=== PATIENT | male | born 1975 | race Caucasian/White ===

== ENCOUNTER 2016-05-20 03:39 | Observation (INO) | payer OTHER ==
[2016-05-20] MEDS ORDERED: SODIUM CHLORIDE 0.9% 500 ML IV STA (04:07)
[2016-05-20] MEDS ORDERED: SODIUM CHLORIDE 0.9% 1,000 ML IV STA ×2 (04:07)
--- NOTE | 2016-05-20 04:12 | ED ---
General Adult HPI - General Chief complaint: Recheck/Abnormal Lab/Rx Stated complaint: feels off, dizzy, nausea Time Seen by Provider: 05/20/16 04:01 Source: patient, RN notes reviewed, old records reviewed Mode of arrival: ambulatory Limitations: no limitations - History of Present Illness Initial comments: This is a 41-year-old male to the ER for evaluation. Patient presents today for evaluation of not feeling well. Patient's nonspecific symptoms. Patient states he has no medical history no travel history no significant sick contacts and no recent drugs or alcohol abuse. Patient states after woke up from a nap earlier today with his granddaughter he just was not feeling well maybe a little left arm numbness, no change in weakness or strength. No change in sensation. Patient was try to sleep today. He says he just feels out of it, patient states he does not feel right. He is able to walk without difficulty, patient is alert and oriented but states that something is wrong, patient's is here with concerned, states patient does not normally act like this - Related Data Home Medications Medication Instructions Recorded Confirmed No Known Home Medications [No 05/20/16 05/20/16 Known Home Medications] Allergies Allergy/AdvReac Type Severity Reaction Status Date / Time No Known Allergies Allergy Verified 05/20/16 03:49 Review of Systems ROS Statement: Those systems with pertinent positive or pertinent negative responses have been documented in the HPI. ROS Other: All systems not noted in ROS Statement are negative. Past Medical History Past Medical History: No Reported History History of Any Multi-Drug Resistant Organisms: None Reported Past Surgical History: No Surgical Hx Reported Past Psychological History: Depression Smoking Status: Never smoker Past Alcohol Use History: None Reported Past Drug Use History: None Reported General Exam Limitations: no limitations General appearance: alert, in no apparent distress Head exam: Present: atraumatic, normocephalic, normal inspection Eye exam: Present: normal appearance, PERRL, EOMI. Absent: scleral icterus, conjunctival injection, periorbital swelling ENT exam: Present: normal exam, mucous membranes moist Neck exam: Present: normal inspection. Absent: tenderness, meningismus, lymphadenopathy Respiratory exam: Present: normal lung sounds bilaterally. Absent: respiratory distress, wheezes, rales, rhonchi, stridor Cardiovascular Exam: Present: regular rate, normal rhythm, normal heart sounds. Absent: systolic murmur, diastolic murmur, rubs, gallop, clicks GI/Abdominal exam: Present: soft, normal bowel sounds. Absent: distended, tenderness, guarding, rebound, rigid Extremities exam: Present: normal inspection, full ROM, normal capillary refill. Absent: tenderness, pedal edema, joint swelling, calf tenderness Back exam: Present: normal inspection Neurological exam: Present: alert, oriented X3, CN II-XII intact Psychiatric exam: Present: normal affect, normal mood Skin exam: Present: warm, dry, intact, normal color. Absent: rash Course Vital Signs 05/20/16 03:46 Temperature 97.8 F Pulse Rate 65 Respiratory 18 Rate Blood Pressure 140/84 O2 Sat by Pulse 99 Oximetry - Reevaluation(s) Reevaluation #1: 05/20/16 06:01 Patient states he is feeling better with IV hydration although still feels a little weird, left-sided symptoms. Family concerned about heart attack EKG Findings - EKG Comments: EKG Findings:: EKG shows normal sinus rhythm rate of 62, W[place] 140, QRS 96, QTC 43 Medical Decision Making - Medical Decision Making 41 mailed the ER for evaluation of left-sided symptoms, concern for heart attack. Patient's feel weak and dizzy throughout the day. Patient's peak headache enzymes are mildly elevated, EKG and troponin are negative. Patient will be admitted for serial troponins, cardiac observation - Lab Data Result diagrams: 05/20/16 04:30 05/20/16 04:30 Lab Results 05/20/16 05/20/16 05/20/16 Range/Units 04:30 04:30 04:30 WBC 7.5 (3.8-10.6) k/uL RBC 5.41 (4.30-5.90) m/uL Hgb 15.4 (13.0-17.5) gm/dL Hct 46.7 (39.0-53.0) % MCV 86.2 (80.0-100.0) fL MCH 28.4 (25.0-35.0) pg MCHC 33.0 (31.0-37.0) g/dL RDW 13.4 (11.5-15.5) % Plt Count 207 (150-450) k/uL Neutrophils % 60 % Lymphocytes % 32 % Monocytes % 4 % Eosinophils % 2 % Basophils % 1 % Neutrophils # 4.5 (1.3-7.7) k/uL Lymphocytes # 2.4 (1.0-4.8) k/uL Monocytes # 0.3 (0-1.0) k/uL Eosinophils # 0.2 (0-0.7) k/uL Basophils # 0.1 (0-0.2) k/uL PT (9.0-12.0) sec INR (<1.1) APTT (22.0-30.0) sec Sodium 142 (137-145) mmol/L Potassium 4.1 (3.5-5.1) mmol/L Chloride 107 (98-107) mmol/L Carbon Dioxide 22 (22-30) mmol/L Anion Gap 13 mmol/L BUN 15 (9-20) mg/dL Creatinine 0.90 (0.66-1.25) mg/dL Est GFR (MDRD) Af Amer >60 (>60 ml/min/1.73 sqM) Est GFR (MDRD) Non-Af >60 (>60 ml/min/1.73 sqM) Glucose 117 H (74-99) mg/dL Calcium 9.5 (8.4-10.2) mg/dL Total Bilirubin 0.7 (0.2-1.3) mg/dL AST 38 (17-59) U/L ALT 66 (21-72) U/L Alkaline Phosphatase 86 (38-126) U/L Total Creatine Kinase 322 H (55-170) U/L CK-MB (CK-2) 2.7 H* (0.0-2.4) ng/mL CK-MB (CK-2) Rel Index 0.8 Troponin I <0.012 (0.000-0.034) ng/mL Total Protein 7.8 (6.3-8.2) g/dL Albumin 4.3 (3.5-5.0) g/dL TSH 2.210 (0.465-4.680) mIU/L Urine Color Urine Appearance (Clear) Urine pH (5.0-8.0) Ur Specific [place] (1.001-1.035) Urine Protein (Negative) Urine Glucose (UA) (Negative) Urine Ketones (Negative) Urine Blood (Negative) Urine Nitrate (Negative) Urine Bilirubin (Negative) Urine Urobilinogen (<2.0) mg/dL Ur Leukocyte Esterase (Negative) Salicylates <1.0 mg/dL Acetaminophen <10.0 ug/mL Serum Alcohol <10 mg/dL 05/20/16 05/20/16 Range/Units 04:30 05:42 WBC (3.8-10.6) k/uL RBC (4.30-5.90) m/uL Hgb (13.0-17.5) gm/dL Hct (39.0-53.0) % MCV (80.0-100.0) fL MCH (25.0-35.0) pg MCHC (31.0-37.0) g/dL RDW (11.5-15.5) % Plt Count (150-450) k/uL Neutrophils % % Lymphocytes % % Monocytes % % Eosinophils % % Basophils % % Neutrophils # (1.3-7.7) k/uL Lymphocytes # (1.0-4.8) k/uL Monocytes # (0-1.0) k/uL Eosinophils # (0-0.7) k/uL Basophils # (0-0.2) k/uL PT 10.7 (9.0-12.0) sec INR 1.1 (<1.1) APTT 25.1 (22.0-30.0) sec Sodium (137-145) mmol/L Potassium (3.5-5.1) mmol/L Chloride (98-107) mmol/L Carbon Dioxide (22-30) mmol/L Anion Gap mmol/L BUN (9-20) mg/dL Creatinine (0.66-1.25) mg/dL Est GFR (MDRD) Af Amer (>60 ml/min/1.73 sqM) Est GFR (MDRD) Non-Af (>60 ml/min/1.73 sqM) Glucose (74-99) mg/dL Calcium (8.4-10.2) mg/dL Total Bilirubin (0.2-1.3) mg/dL AST (17-59) U/L ALT (21-72) U/L Alkaline Phosphatase (38-126) U/L Total Creatine Kinase (55-170) U/L CK-MB (CK-2) (0.0-2.4) ng/mL CK-MB (CK-2) Rel Index Troponin I (0.000-0.034) ng/mL Total Protein (6.3-8.2) g/dL Albumin (3.5-5.0) g/dL TSH (0.465-4.680) mIU/L Urine Color Colorless Urine Appearance Clear (Clear) Urine pH 5.5 (5.0-8.0) Ur Specific [place] 1.004 (1.001-1.035) Urine Protein Negative (Negative) Urine Glucose (UA) Negative (Negative) Urine Ketones Negative (Negative) Urine Blood Negative (Negative) Urine Nitrate Negative (Negative) Urine Bilirubin Negative (Negative) Urine Urobilinogen <2.0 (<2.0) mg/dL Ur Leukocyte Esterase Negative (Negative) Salicylates mg/dL Acetaminophen ug/mL Serum Alcohol mg/dL - Radiology Data Radiology results: report reviewed (Chest x-ray two-view is negative for acute disease), image reviewed Critical Care Time Critical Care Time: Yes Total Critical Care Time: 31 Disposition Clinical Impression: Chest pain, Arm paresthesia, left Disposition: ADMITTED IP TO THIS [facility] Condition: Undetermined Referrals: Keith Macdonald MD [Primary Care Provider] - 1-2 days
[2016-05-20 04:49] LABS: Basophils # (A) 0.1 k/uL (0-0.2); Basophils % (A) 1 %; CH 29.8; CHCM 34.7; Eosinophils # (A) 0.2 k/uL (0-0.7); Eosinophils % (A) 2 %; HCT 46.7 % (39.0-53.0); HDW 2.71; HGB 15.4 gm/dL (13.0-17.5); Luc # (Auto) 0.09; Luc % (Auto) 1; Lymphocytes # (A) 2.4 k/uL (1.0-4.8); Lymphocytes % (A) 32 %; MCH 28.4 pg (25.0-35.0); MCV 86.2 fL (80.0-100.0); Mean Platelet Volume 7.6; Monocytes # (A) 0.3 k/uL (0-1.0); Monocytes % (A) 4 %; Neutrophils # (A) 4.5 k/uL (1.3-7.7); Neutrophils % (A) 60 %; RBC 5.41 m/uL (4.30-5.90); RDW 13.4 % (11.5-15.5); WBC 7.5 k/uL (3.8-10.6); WBC (Perox) 7.29
[2016-05-20 05:02] LABS: INR 1.1 (<1.1); Partial Thromboplastin Time 25.1 sec (22.0-30.0); Prothrombin Time 10.7 sec (9.0-12.0)
[2016-05-20 05:06] LABS: ALT 66 U/L (21-72); AST 38 U/L (17-59); Acetaminophen <10.0 ug/mL; Alcohol <10 mg/dL; Alkaline Phosphatase 86 U/L (38-126); Anion Gap 13 mmol/L; Blood Urea Nitrogen 15 mg/dL (9-20); Calcium 9.5 mg/dL (8.4-10.2); Carbon Dioxide 22 mmol/L (22-30); Chloride 107 mmol/L (98-107); Glucose 117 mg/dL (74-99); Non-African American GFR(MDRD) >60 (>60 ml/min/1.73 sqM); Potassium 4.1 mmol/L (3.5-5.1); Salicylate <1.0 mg/dL; Sodium 142 mmol/L (137-145); Total Bilirubin 0.7 mg/dL (0.2-1.3); Total Protein 7.8 g/dL (6.3-8.2)
[2016-05-20 05:09] LABS: Creatine Kinase 322 U/L (55-170)
--- NOTE | 2016-05-20 05:17 | CT ---
EXAMINATION TYPE: CT brain wo con DATE OF EXAM: 05/20/2016 5:02 AM COMPARISON: NONE HISTORY: dizziness CT DLP: 1017.90 mGycm Automated exposure control for dose reduction was used. FINDINGS: There is no acute intracranial hemorrhage, mass effect, or midline shift identified. The ventricles and sulci are within normal limits in size. The globes are intact and the visualized sinuses are edmund ar. IMPRESSION: No acute intracranial hemorrhage, mass effect, or midline shift is seen.
[2016-05-20 05:22] LABS: Troponin I <0.012 ng/mL (0.000-0.034)
--- NOTE | 2016-05-20 05:23 | XR ---
EXAMINATION TYPE: XR chest 2V DATE OF EXAM: 05/20/2016 5:03 AM COMPARISON: None. HISTORY: History of weakness and no history of heart and lung bases. TECHNIQUE: Frontal and lateral views of the chest are obtained. FINDINGS: There is no focal air space opacity, pleural effusion, or pneumothorax seen. The cardiac silhouette size is within normal limits. The osseous structures are intact. IMPRESSION: No acute cardiopulmonary process.
[2016-05-20 05:41] LABS: Creatine Kinase MB 2.7 ng/mL (0.0-2.4)
[2016-05-20 05:54] LABS: Appearance,Urine Clear (Clear); Bilirubin,Urine Negative (Negative); Glucose,Urine (UA) Negative (Negative); Ketones,Urine Negative (Negative); Leukocyte Esterase,Urine Negative (Negative); Nitrite,Urine Negative (Negative); PH, Urine 5.5 (5.0-8.0); Protein,Urine Negative (Negative); Specific Gravity,Urine 1.004 (1.001-1.035); UA Billing (MACRO vs. MICRO) CHEM; Urobilinogen,Urine <2.0 mg/dL (<2.0)
[2016-05-20] MEDS ORDERED: ASPIRIN 81 MG CHEW PO STA (06:00)
[2016-05-20] MEDS ORDERED: NITROGLYCERIN SL TABS 0.4 MG TAB SUBLINGUAL PRN (06:00)
[2016-05-20] MEDS ORDERED: SODIUM CHLORIDE 0.9% 1,000 ML IV SCH (06:00)
[2016-05-20] MEDS ORDERED: HEPARIN SODIUM,PORCINE/D5W PMX 25,000 UNIT in DEXTROSE/WATER 1 500ML.BAG IV SCH (06:00)
[2016-05-20] MEDS ORDERED: HEPARIN SODIUM,PORCINE 5,000 UNIT/ML 1 ML VIAL IV PRN (06:00)
[2016-05-20] MEDS ORDERED: HEPARIN SODIUM,PORCINE 5,000 UNIT/ML 1 ML VIAL IV ONE (06:00)
[2016-05-20] MEDS ORDERED: ATORVASTATIN 80 MG TAB PO SCH (09:00)
[2016-05-20 09:49] VITALS: RESP 18
--- NOTE | 2016-05-20 11:01 | ECHOF ---
Referral Reason:cp MEASUREMENTS -------- HEIGHT: 152.4 cm WEIGHT: 90.7 kg BP: 124/72 RVIDd: 3.4 cm (< 3.3) IVSd: 1.2 cm (0.6 - 1.1) LVIDd: 4.7 cm (3.9 - 5.3) LVPWd: 1.0 cm (0.6 - 1.1) IVSs: 1.4 cm LVIDs: 3.2 cm LVPWs: 1.5 cm LA Diam: 3.8 cm (2.7 - 3.8) Ao Diam: 3.1 cm (2.0 - 3.7) AV Cusp: 2.1 cm (1.5 - 2.6) LA Diam: 3.9 cm (2.7 - 3.8) MV EXCURSION: 21.150 mm (> 18.000) MV EF SLOPE: 130 mm/s (70 - 150) EPSS: 0.5 cm MV E [place]: 0.73 m/s MV DecT: 193 ms MV A [place]: 0.62 m/s MV E/A Ratio: 1.16 RAP: 5.00 mmHg RVSP: 18.11 mmHg FINDINGS -------- Sinus rhythm. This was a technically good study. LV size, wall thickness and systolic function are normal, with an EF greater than 55%. The right ventricle is normal in size. The left atrial size is normal. The right atrial size is normal. There is mild aortic valve sclerosis. There is no evidence of aortic regurgitation. Mild mitral annular calcification present. Mild mitral regurgitation is present. Mild tricuspid regurgitation present. There is no evidence of pulmonary hypertension. The right ventricular systolic pressure, as measured by Doppler, is 18.11mmHg. There is no pulmonic regurgitation present. The aortic root size is normal. There is no pericardial effusion. CONCLUSIONS -------- 1. LV size, wall thickness and systolic function are normal, with an EF greater than 55%. 2. There is no pericardial effusion. 3. There is mild aortic valve sclerosis. 4. Mild mitral annular calcification present. 5. Mild mitral regurgitation is present. 6. Mild tricuspid regurgitation present. 7. There is no evidence of pulmonary hypertension. 8. The right ventricular systolic pressure, as measured by Doppler, is 18.11mmHg. 9. There is no pulmonic regurgitation present. 10. The aortic root size is normal. REGIONAL PRODUCTION MANAGER: Jeannine Wagner RDCS
[2016-05-20 11:26] LABS: Creatine Kinase 280 U/L (55-170)
[2016-05-20 11:38] LABS: Creatine Kinase MB 1.8 ng/mL (0.0-2.4); Troponin I <0.012 ng/mL (0.000-0.034)
--- NOTE | 2016-05-20 12:34 | P.HPIM ---
History of Present Illness 41-year-old male was admitted through the emergency room with complaints of left arm tingling with nausea patient denies any history of coronary disease negative family history troponins noted to be negative .negative medical history Review of Systems Gastrointestinal: Reports nausea Neurological: Reports paresthesias Past Medical History Past Medical History: No Reported History History of Any Multi-Drug Resistant Organisms: None Reported Past Surgical History: No Surgical Hx Reported Additional Past Anesthesia/Blood Transfusion Reaction / Comment(s): Pt has never had anesthesia Past Psychological History: Depression Additional Psychological History / Comment(s): Pt has had depression in the past but none for a long time. He resides with his spouse and their 3 children. He is independent. Smoking Status: Never smoker Past Alcohol Use History: None Reported Past Drug Use History: None Reported - Past Family History Father History Unknown: Yes Additional Family Medical History / Comment(s): Pt is adopted. Mother Family Medical History: No Reported History Additional Family Medical History / Comment(s): Pt is adopted. Medications and Allergies Home Medications Medication Instructions Recorded Confirmed Type No Known Home Medications [No 05/20/16 05/20/16 History Known Home Medications] Allergies Allergy/AdvReac Type Severity Reaction Status Date / Time No Known Allergies Allergy Verified 05/20/16 07:13 Physical Exam Vitals: Vital Signs Temp Pulse Resp BP Pulse Ox 05/20/16 09:48 82 18 124/82 99 05/20/16 07:29 91 16 108/61 97 05/20/16 06:48 97.4 F L 60 18 120/69 96 - Constitutional General appearance: obese - EENT Eyes: PERRLA Ears: bilateral: normal - Neck Neck: normal ROM - Respiratory Respiratory: bilateral: CTA - Cardiovascular Rhythm: regular - Gastrointestinal General gastrointestinal: soft - Integumentary Integumentary: normal - Neurologic Neurologic: CNII-XII intact - Psychiatric Psychiatric: A&O x's 3, appropriate affect, intact judgment & insight Results CBC & Chem 7: 05/20/16 04:30 05/20/16 04:30 Labs: Abnormal Lab Results - Last 24 Hours (Table) 05/20/16 Range/Units 10:40 Total Creatine Kinase 280 H (55-170) U/L Chest x-ray: report reviewed CT Scan - head: report reviewed Thrombosis Risk Factor Assmnt - Choose All That Apply Any of the Below Risk Factors Present?: Yes Each Factor Represents 1 point: Age 41-60 years, Obesity (BMI >25) Other Risk Factors: No Other congenital or acquired thrombophilia - If yes, enter type in comment: No Thrombosis Risk Factor Assessment Total Risk Factor Score: 2 Thrombosis Risk Factor Assessment Level: Low Risk Assessment and Plan Plan: Assessment Left arm paresthesia chest pain troponins negative Plan Patient scheduled for a stress test with cardiology Hopeful discharge soon if stress test negative
[2016-05-20 13:30] VITALS: BP 124/80; PULSE 90; TEMP 98.1
--- NOTE | 2016-05-20 13:50 | ECHOS ---
DATE OF SERVICE: 05/20/2016 AGE: 41Y SEX: M HT: 70" WT: - lbs. Protocol Roberto: X Others: Stress Echo Stage: 4 Dur. of Exercise: 10:00 *Heart Rate Blood Pressure *Rest: 74 Rest: 104/50 * *Max. Achieved: 159 Maximum BP: 180/59 85% PMHR: 150 100% PMHR: 177 *METS: 11.2 INDICATIONS: Chest pain. MEDICATIONS: - STRESS DATA: Heart rate 74, pressure is 104/50 mmHg. Baseline EKG shows sinus rhythm. The patient exercised on the treadmill according to Roberto protocol for a total of 10 minutes and achieved 11.2 METs. Max heart rate was 159, which is about 90% of maximum predicted heart rate. Maximum blood pressure was 180/59 mmHg. The patient did not have any symptoms and the EKG did not show any significant ST or T-wave abnormalities consistent with ischemia or meeting the criteria for ischemia. ECHOCARDIOGRAM IMAGES: On echocardiogram images from parasternal long axis view, parasternal short axial view, apical 4 chamber and apical 2 chamber images as the baseline images and at the peak heart rate, as well as on recovery and the echocardiogram images showed good augmentation in the left ventricular function. CONCLUSION: 1. Excellent exercise capacity. 2. Normal EKG in response to exercise. 3. Normal echocardiogram in response to exercise.
--- NOTE | 2016-05-20 13:53 | CONS ---
DATE OF CONSULTATION: CHIEF COMPLAINT: Chest pain. 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 He also had some sharp pain involving left arm, also had some numbness involving the left arm. Due to this, he was concerned, came to hospital. Since coming here, he has been symptoms free. EKG does not reveal ischemic changes. Chest x-ray is negative. First set of troponin is negative. Past medical history is negative for hypertension, diabetes, dyslipidemia. MEDICATIONS: None. ALLERGIES: None. Family history is negative for premature coronary artery disease. SOCIAL HISTORY: He denies smoking, EtOH abuse, or drug abuse. REVIEW OF SYSTEMS: HEENT: Unremarkable. CARDIAC: As described above. RESPIRATORY: Negative. GI: Negative. GENITOURINARY: Negative. ALLERGY/IMMUNOLOGY: Negative. SKIN: Negative. MUSCULOSKELETAL: Negative. ENDOCRINE: Negative. DERM: Negative. CONSTITUTIONAL: Negative. ONCOLOGICAL: Negative. The rest of the system review is not relevant. On exam, heart rate is 90, blood pressure 108/60, respirations 16. O2 sat is 97%. There is no jugular venous distention. Carotid upstroke is normal. There is no bruit. Chest exam reveals good air entry bilaterally. Heart exam reveals first and second heart sounds. No gallop. No murmur, no rub. Abdomen is soft, nontender. Exam of extremities did not reveal any edema. Peripheral pulses are felt. ACUPRESSURE THERAPIST exam did not reveal focal neurological deficits. Labs show a hemoglobin of 15.4 platelet count is 207. Potassium is 4.1, creatinine is 0.9. First set of troponin is negative. ASSESSMENT: Atypical chest pain syndrome. PLAN: The patient pain free and doing well and declined IV heparin at this time. Once [place] is ruled out, he will undergo a stress test. If this is normal, he will be discharged home.
--- NOTE | 2016-05-20 17:43 | P.DS ---
Providers Date of admission: 05/20/16 06:00 Expected date of discharge: 05/20/16 Attending physician: Tyrese Flores Primary care physician: Keith Macdonald [facility] Hospital Course: 41 old male was admitted to the emergency room for complaints of chest pain left arm procedure. Patient was evaluated by cardiology. Patient had negative troponins and negative stress test. Patient will follow up with family physician assessment Chest pain atypical negative troponins negative stress tests left arm paresthesias Plan Discharge home follow up with family physician Dr. Keith Macdonald Patient Condition at Discharge: Good Plan - Discharge Summary Discharge Medication List No Known Home Medications [No Known Home Medications] 05/20/16 [History] Follow up Appointment(s)/Referral(s): Keith Macdonald MD [Primary Care Provider] - 1 Week Patient Instructions/Handouts: Chest Pain (DC) Discharge Disposition: HOME SELF-CARE
[2016-05-21] MEDS ORDERED: ASPIRIN 325 MG TAB PO SCH (09:00)
== END 2016-05-20 15:00 | disposition home or self-care (01) ==
LOC: EC 03:39 → 3OBS 06:00
PROVIDERS: ADMIT Hospitalist; ATTEND Hospitalist
DX: R07.89 Other chest pain (principal); R42 Dizziness and giddiness; R11.0 Nausea; R20.2 Paresthesia of skin
CPT/HCPCS: 36415; 93017; 93306; 93350; 80053; 82550; 82553; 84443; 84484; 85025; 85610; 85730; 81003; 80306; 83520 ×2; 80320; 71020; 70450; 99291; 96360; 96361; G0378; 93005

== ENCOUNTER 2018-10-12 00:34 | Emergency (ER) | payer OTHER ==
[2018-10-12 00:54] VITALS: RESP 18; TEMP 98.2
[2018-10-12] MEDS ORDERED: AMOXIC-POT CLAV 875MG STARTER 2 EACH TABLET PO STA (02:14)
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
--- NOTE | 2018-10-12 02:52 | XR ---
EXAM: XR Right Hand Complete, 3 or More Views CLINICAL HISTORY: ITS.REASON XR Reason: Pain TECHNIQUE: Frontal, lateral and oblique views of the right hand. COMPARISON: No relevant prior studies available. FINDINGS: Bones/joints: Bones: No acute osseous traumatic injury identified. No subluxation or dislocation. Degenerative changes are noted involving the second through fourth DIP joints, most notable involving the fourth digit. Soft tissues: Soft tissue swelling is noted overlying the dorsum of the proximal hand in the region of the distal metacarpal bones. No radiopaque foreign body. IMPRESSION: Soft tissue swelling is noted overlying the dorsum of the proximal hand in the region of the distal metacarpal bones. No radiopaque foreign body. No acute osseous traumatic injury.
[2018-10-12 04:46] VITALS: BP 132/95; PULSE 82
[2018-10-12 18:36] LABS: Hepatitis B Surface AB- Quant 3.5 mIU/mL; Hepatitis C IgG Antibody Non-Reactive (Non-Reactive)
[2018-10-12 19:36] LABS: HIV 1 AB Non-Reactive (Non-Reactive); HIV AB P24 Non-Reactive (Non-Reactive); HIV P24 AG Non-Reactive (Non-Reactive)
== END 2018-10-12 04:46 | disposition home or self-care (01) ==
LOC: EC 00:34
DX: S60.571A Other superficial bite of hand of right hand, initial encounter (principal); Y04.1XXA Assault by human bite, initial encounter
CPT/HCPCS: 36415; 86706; 86803; 87390; 99284

== ENCOUNTER → 2022-10-03 | Outpatient (CLI) | payer OTHER ==
[2022-10-03 22:29] LABS: ALT 40 U/L (4-49); AST 38 U/L (17-59); African American GFR (CKD) >90 (>60 ml/min/1.73 sqM); Albumin 4.3 g/dL (3.5-5.0); Albumin/Globulin Ratio 1.2; Alkaline Phosphatase 66 U/L (38-126); Anion Gap 8 mmol/L; Blood Urea Nitrogen 23 mg/dL (9-20); Calcium 9.1 mg/dL (8.4-10.2); Carbon Dioxide 26 mmol/L (22-30); Chloride 104 mmol/L (98-107); Globulin 3.7 g/dL; Non-African American GFR(CKD) >90 (>60 ml/min/1.73 sqM); Sodium 138 mmol/L (137-145); Total Bilirubin 1.3 mg/dL (0.2-1.3)
[2022-10-03 22:39] LABS: T4, Free (Free Thyroxine) 1.19 ng/dL (0.78-2.19)
[2022-10-04 01:53] LABS: Basophils # (A) 0.03 X 10*3/uL (0.00-0.10); Basophils % (A) 0.4 %; Eosinophils # (A) 0.16 X 10*3/uL (0.04-0.35); Eosinophils % (A) 2.2 %; HCT 46.4 % (39.6-50.0); HGB 15.4 d/dL (12.0-15.0); Immature Grans, Automated 0 %; Lymphocytes # (A) 3.13 X 10*3/uL (0.90-5.00); Lymphocytes % (A) 42.6 %; MCH 29.2 pg (27.0-32.0); MCHC 33.2 d/dL (32.0-37.0); Mean Platelet Volume 9.9 FL (9.5-12.2); Monocytes # (A) 0.55 X 10*3/uL (0.20-1.00); Monocytes % (A) 7.5 %; NRBC Per 100 WBC 0 X 10*3/uL (0.00-0.01); Neutrophils # (A) 3.47 X 10*3/uL (1.80-7.70); Neutrophils % (A) 47.3 %; Platelet Count 251 X 10*3/uL (140-440); RBC 5.27 X 10*6/uL (4.40-5.60); RDW 13.5 % (11.5-14.5); WBC 7.34 X 10*3/uL (4.50-10.00)
[2022-10-04 02:16] LABS: LDL Cholesterol,Calculated 116.1 mg/dL (0.0-131.0); VLDL Calculation 15.36 mg/dL (5.00-40.00)
== END | disposition home or self-care (01) ==
LOC: LABWHC1 15:32
PROVIDERS: ATTEND Family Medicine
DX: Z00.00 Encounter for general adult medical examination without abnormal findings (principal); Z11.59 Encounter for screening for other viral diseases; Z12.5 Encounter for screening for malignant neoplasm of prostate
CPT/HCPCS: 36415; 80053; 80061; 84153; 84439; 84443; 85025; 86803